=== PATIENT | female | born 1945 | race Hispanic/Latino ===

== ENCOUNTER 2017-12-30 10:28 | Outpatient (CLI) | payer MEDICARE | END 2017-12-30 10:29 | disposition home or self-care (01) | LOC: BICMAMMO 10:28 | PROVIDERS: ATTEND Internal Medicine Hematology & Oncology | DX: Z12.31 Encounter for screening mammogram for malignant neoplasm of breast (principal); Z85.3 Personal history of malignant neoplasm of breast; Z98.82 Breast implant status; Z80.3 Family history of malignant neoplasm of breast | CPT/HCPCS: 77063; 77067 ==

== ENCOUNTER 2018-07-15 10:03 | Outpatient (CLI) | payer MEDICARE ==
--- NOTE | 2018-07-15 10:23 | RAD ---
EXAM: Chest PA and lateral: HISTORY: Cough. Symptoms x1 week. COMPARISON: 07/16/2016 FINDINGS: Heart: Normal cardiac silhouette Aorta: There is sclerosis of the aortic knob Pulmonary vessels: Slightly prominent Costophrenic angles: Costophrenic angles are clear. Lungs: Hyperinflation with chronic changes. Pneumothorax: No pneumothorax Osseous structures: Old posterior right seventh and eighth rib fractures are noted IMPRESSION: No acute cardiopulmonary process. Atherosclerosis of the aorta.
== END 2018-07-15 10:04 | disposition home or self-care (01) ==
LOC: BICRAD 10:03
PROVIDERS: ATTEND Internal Medicine
DX: R05 Cough (principal); I70.0 Atherosclerosis of aorta
CPT/HCPCS: 71046

== ENCOUNTER 2018-08-11 08:19 | Outpatient (CLI) | payer MEDICARE ==
[2018-08-11 08:56] LABS: Estimated GFR-MDRD - POC Greater than 90
--- NOTE | 2018-08-11 12:07 | MRI ---
MRI RIGHT UPPER EXTREMITY WITH AND WITHOUT CONTRAST: HISTORY: Mass. COMPARISON: None. FINDINGS: There appears to be a rupture of the longhead biceps tendon with an empty intertrabecular groove. Th e tendon is retracted from the intertrabecular groove to the myotendinous junction. There is edema w ithin the biceps muscle. This is incompletely evaluated on this exam as the caudal margin is not com pletely visualized. The retracted tendon from the intertrabecular groove is above the elbow joint approximately 13 cm. T he short head of the biceps is unremarkable. There is an intact right breast implant. The deltoid muscle as well as the pectoralis muscle is inta ct. No adenopathy. The enhancement of the muscle and adjacent fascia is likely sequelae of inflammatory change from rece nt rupture. IMPRESSION: Findings suggesting a ruptured longhead biceps tendon from the intertrabecular groove retracted down distally. Orthopedic consultation advised. Adjacent enhancement, likely inflammatory in nature from relatively a recent rupture. Underlying mass is felt less likely. POS: TPC
== END 2018-08-11 08:20 | disposition home or self-care (01) ==
LOC: BICMRI 08:19
PROVIDERS: ATTEND Internal Medicine
DX: R22.31 Localized swelling, mass and lump, right upper limb (principal)
CPT/HCPCS: 82565

== ENCOUNTER 2019-01-04 09:07 | Outpatient (CLI) | payer MEDICARE ==
--- NOTE | 2019-01-04 10:05 | MMO ---
Bilateral MAMMO Bilat Screen [facility]. CLINICAL HISTORY: Patient is 73 years old and is seen for screening. The patient has no family history of breast cancer. The patient has a history of right Implants in 2012 and left Mastectomy - malignant. VIEWS: The views performed were: right craniocaudal; right craniocaudal with tomosynthesis; right mediolateral oblique; right mediolateral oblique with tomosynthesis; and right Implant displaced. FILMS COMPARED: The present examination has been compared to prior imaging studies performed at [facility] on 12/15/2014, 12/26/2015, 12/26/2016 and 12/30/2017. This study has been interpreted with the assistance of computer-aided detection. MAMMOGRAM FINDINGS: There are scattered fibroglandular densities. Finding 1: There are stable benign appearing calcifications with associated biopsy clip seen in the right breast. There are no suspicious masses, calcifications or areas of architectural distortion. Finding 2: Normal implants are present. There are no suspicious masses, suspicious calcifications, or new areas of architectural distortion. IMPRESSION: THERE IS NO MAMMOGRAPHIC EVIDENCE OF MALIGNANCY. A ROUTINE FOLLOW-UP MAMMOGRAM IN 1 YEAR IS RECOMMENDED. THE RESULTS OF THIS EXAM WERE SENT TO THE PATIENT. ACR BI-RADS Category 2 - Benign finding MAMMOGRAPHY NOTE: 1. A negative mammogram report should not delay a biopsy if a dominant of clinically suspicious mass is present. 2. Approximately 10% to 15% of breast cancers are not detected by mammography. 3. Adenosis and dense breasts may obscure an underlying neoplasm. Reported by: FLORECITA PEREA MD Electonically Signed: [id number]
== END 2019-01-04 09:08 | disposition home or self-care (01) ==
LOC: BICMAMMO 09:07
PROVIDERS: ATTEND Internal Medicine Hematology & Oncology
DX: Z12.31 Encounter for screening mammogram for malignant neoplasm of breast (principal); Z98.82 Breast implant status
CPT/HCPCS: 77063; 77067

== ENCOUNTER 2019-08-18 08:37 | Outpatient (CLI) | payer MEDICARE ==
--- NOTE | 2019-08-18 10:50 | BD ---
BONE DENSITOMETRY: INDICATION: Postmenopausal screening. FINDINGS: Lumbar Spine: BMD (g/cm2) L1 0.952 T-Score: -0.3 L2 0.939 T-Score: -0.8 L3 1.023 T-Score: -0.6 L4 1.034 T-Score: -0.2 L1-L4 0.990 T-Score: -0.5 Femoral Neck: 0.624 T-Score: -2.0 Total Femur: 0.894 T-Score: -0.4 Impression: 1. Bone mineral density of the femoral neck indicates osteopenia. 2. Bone mineral density of the lumbar spine within normal range. Ten-year Fracture Risk: Major osteoporotic fracture: 19%. Hip Fracture: 8.6%. POS: AGW
== END 2019-08-18 08:38 | disposition home or self-care (01) ==
LOC: BICMAMMO 08:37
PROVIDERS: ATTEND Internal Medicine
DX: Z13.820 Encounter for screening for osteoporosis (principal); M85.859 Other specified disorders of bone density and structure, unspecified thigh; Z78.0 Asymptomatic menopausal state
CPT/HCPCS: 77080

== ENCOUNTER 2020-01-17 08:19 | Outpatient (CLI) | payer MEDICARE ==
--- NOTE | 2020-01-17 08:53 | MMO ---
Bilateral MAMMO Bilat Screen [facility]. CLINICAL HISTORY: Patient is 74 years old and is seen for screening. The patient has no family history of breast cancer. The patient has a history of right Implants in 2011 and left Mastectomy - malignant. VIEWS: The views performed were: right craniocaudal; right craniocaudal implant displaced; right mediolateral oblique; and right mediolateral oblique implant displaced. FILMS COMPARED: The present examination has been compared to prior imaging studies performed at [facility] on 12/26/2015, 12/26/2016, 12/30/2017 and 01/04/2019. This study has been interpreted with the assistance of computer-aided detection. MAMMOGRAM FINDINGS: There are scattered fibroglandular densities. Finding 1: There are stable benign appearing calcifications seen in both breasts. Finding 2: There is a stable intramammary lymph node seen in the right breast. Finding 3: Normal implants are present. There are no suspicious masses, suspicious calcifications, or new areas of architectural distortion. IMPRESSION: THERE IS NO MAMMOGRAPHIC EVIDENCE OF MALIGNANCY. A ROUTINE FOLLOW-UP MAMMOGRAM IN 1 YEAR IS RECOMMENDED. THE RESULTS OF THIS EXAM WERE SENT TO THE PATIENT. ACR BI-RADS Category 2 - Benign finding MAMMOGRAPHY NOTE: 1. A negative mammogram report should not delay a biopsy if a dominant of clinically suspicious mass is present. 2. Approximately 10% to 15% of breast cancers are not detected by mammography. 3. Adenosis and dense breasts may obscure an underlying neoplasm. Reported by: JERARDO TOMPKINS MD Electonically Signed: [id number]
== END 2020-01-17 08:20 | disposition home or self-care (01) ==
LOC: BICMAMMO 08:19
PROVIDERS: ATTEND Internal Medicine Hematology & Oncology
DX: Z12.31 Encounter for screening mammogram for malignant neoplasm of breast (principal); Z90.12 Acquired absence of left breast and nipple; Z85.3 Personal history of malignant neoplasm of breast; Z98.82 Breast implant status
CPT/HCPCS: 77063; 77067

== ENCOUNTER 2020-09-03 12:16 | Outpatient (CLI) | payer MEDICARE | END 2020-09-03 12:17 | disposition home or self-care (01) | LOC: BICCT 12:16 | PROVIDERS: ATTEND Internal Medicine | DX: Z12.2 Encounter for screening for malignant neoplasm of respiratory organs (principal); F17.210 Nicotine dependence, cigarettes, uncomplicated; N20.0 Calculus of kidney; I25.10 Atherosclerotic heart disease of native coronary artery without angina pectoris; I70.0 Atherosclerosis of aorta | CPT/HCPCS: 71271 ==

== ENCOUNTER 2021-01-18 09:09 | Outpatient (CLI) | payer MEDICARE | END 2021-01-18 09:10 | disposition home or self-care (01) | LOC: BICMAMMO 09:09 | PROVIDERS: ATTEND Internal Medicine | DX: Z12.31 Encounter for screening mammogram for malignant neoplasm of breast (principal); Z98.82 Breast implant status; Z85.3 Personal history of malignant neoplasm of breast; Z98.890 Other specified postprocedural states | CPT/HCPCS: 77063; 77067 ==

== ENCOUNTER 2021-09-02 12:17 | Outpatient (CLI) | payer MEDICARE | END 2021-09-02 12:18 | disposition home or self-care (01) | LOC: BICRAD 12:17 | PROVIDERS: ATTEND Internal Medicine | DX: M25.551 Pain in right hip (principal); M25.561 Pain in right knee; M16.11 Unilateral primary osteoarthritis, right hip; M17.11 Unilateral primary osteoarthritis, right knee ==

== ENCOUNTER 2021-09-10 07:40 | Outpatient (CLI) | payer MEDICARE | END 2021-09-10 07:41 | disposition home or self-care (01) | LOC: BICMAMMO 07:40 | PROVIDERS: ATTEND Internal Medicine | DX: Z13.820 Encounter for screening for osteoporosis (principal); Z12.2 Encounter for screening for malignant neoplasm of respiratory organs; F17.210 Nicotine dependence, cigarettes, uncomplicated; M85.851 Other specified disorders of bone density and structure, right thigh; M85.852 Other specified disorders of bone density and structure, left thigh; Z78.0 Asymptomatic menopausal state | CPT/HCPCS: 71271; 77080 ==

== ENCOUNTER 2022-01-07 16:44 | Inpatient (IN) | payer MEDICARE ==
[~2022-01-07 16:44] MED LIST: Iopamidol-370 76% 500 ML 1 ML ONE
[2022-01-07] MEDS ORDERED: Ondansetron PF 4 MG/2 ML Vial ONE (18:33)
[2022-01-07 19:02] LABS: Hemoglobin 11.9 g/dL (12.0-16.0); Mean Platelet Volume 7.5 fL (7.4-10.4); Platelet Count 280 thou/uL (130-400); RBC Distribution Width 11.2 % (11.5-14.5); Red Blood Cell (RBC) Count 3.71 mill/uL (4.20-5.40); White Blood Cell (WBC) Count 16.4 thou/uL (4.8-10.8)
[2022-01-07 19:15] LABS: Band 18 % (5-11); Lymphocytes 7 % (21-51); MDiff Complete? YES; Monocytes 20 % (0-10); Neutrophil 55 % (42-75); Platelet Morphology Comment Appears Adequate; Polychromasia SLIGHT = 2-3 cells (100X) (0-2/hpf); Vacuoles SLIGHT
[2022-01-07 19:29] LABS: ALT (SGPT) 33 U/L (8-55); AST (SGOT) 57 U/L (5-34); Albumin 3.4 g/dL (3.4-4.8); Alkaline Phosphatase 153 U/L (40-110); Anion Gap 13 mmol/L (10-20); BUN (Urea Nitrogen) 12 mg/dL (9.8-20.1); Bilirubin, Total 0.5 mg/dL (0.2-1.2); Calc. Creatinine Clearance 0 mL/min (70-130); Calcium 8.4 mg/dL (7.8-10.44); Carbon Dioxide 19 mmol/L (23-31); Chloride 102 mmol/L (98-107); Estimated GFR 76; Glucose 120 mg/dL (83-110); Lipase 12 U/L (8-78); Magnesium 1.3 mg/dL (1.6-2.6); Potassium 3.2 mmol/L (3.5-5.1); Protein, Total 6.4 g/dL (5.8-8.1); Sodium 131 mmol/L (136-145)
[2022-01-07 19:42] LABS: Bacteria/HPF 4+ HPF (None Seen); Bilirubin Negative (Negative); Blood, Urine 1+ (Negative); Clarity Turbid (Clear); Glucose, Urine (Dipstick) Normal (Negative); Ketone, Urine Trace mg/dL (Negative); Leukocyte 500 Leu/uL (Negative); Nitrite Negative (Negative); Protein, Urine (Dipstick) 50 mg/dL (Neg-Trace); Specific Gravity, Urine 1.016 (1.002-1.036); Squamous Epithelial 0-3 HPF (0-3); Urobilinogen Normal mg/dL (Less than 2); WBC/HPF Greater than 50 HPF (0-3); pH, Urine 5.5 (5.0-9.0)
[2022-01-07] MEDS ORDERED: Piperacillin/Tazobactam 4.5 GM VIAL ONE (20:04)
[2022-01-07] MEDS ORDERED: Potassium Chloride 20 MEQ/100 ML PREMIX BAG ONE (21:00)
[2022-01-07] MEDS ORDERED: cefTRIAXone\\ROCEPHIN 1 GM VIAL ONE (21:00)
[2022-01-07] MEDS ORDERED: Potassium Chloride 20 MEQ TAB ONE (21:00)
[2022-01-07] MEDS ORDERED: Ondansetron PF 4 MG/2 ML Vial IVP PRN (21:34)
[2022-01-07] MEDS ORDERED: hydrALAZINE 20 MG/ML VIAL SLOW IVP PRN (21:36)
[2022-01-07] MEDS ORDERED: Magnesium 2 GM/50 ML(in water) 2 GM in Premix Bag 1 BAG IVPB SCH (21:45)
[2022-01-07] MEDS ORDERED: Potassium Chloride 20 MEQ in Lactated Ringer's 1,000 ML IV SCH (21:45)
[2022-01-07] MEDS ORDERED: Morphine 4 MG/ML VIAL SLOW IVP PRN (21:48)
[2022-01-07 22:43] VITALS: BMI 20.7
[2022-01-07] MEDS: Potassium Chloride 20 MEQ in Lactated Ringer's 1,000 ML IV SCH (23:11)
[2022-01-07] MEDS: Acetaminophen 325 MG TAB PO PRN (23:11)
[2022-01-08] MEDS ORDERED: Cefepime 2 GM in Sodium Chloride 0.9% 100 ML IVPB SCH (04:00)
[2022-01-08 07:43] LABS: Hemoglobin 11.7 g/dL (12.0-16.0); Mean Corpuscular HGB CONC 33.2 g/dL (32.0-36.0); Mean Corpuscular Hemoglobin 32.7 pg (27.0-31.0); Mean Corpuscular Volume 98.4 fl (78.0-98.0); Mean Platelet Volume 7.7 fL (7.4-10.4); Platelet Count 288 thou/uL (130-400); RBC Distribution Width 11.3 % (11.5-14.5); Red Blood Cell (RBC) Count 3.59 mill/uL (4.20-5.40); White Blood Cell (WBC) Count 15.8 thou/uL (4.8-10.8)
[2022-01-08 07:57] LABS: ALT (SGPT) 38 U/L (8-55); AST (SGOT) 69 U/L (5-34); Albumin 3.1 g/dL (3.4-4.8); Alkaline Phosphatase 148 U/L (40-110); Anion Gap 11 mmol/L (10-20); BUN (Urea Nitrogen) 8 mg/dL (9.8-20.1); Bilirubin, Total 0.4 mg/dL (0.2-1.2); Calc. Creatinine Clearance 62 mL/min (70-130); Calcium 8.2 mg/dL (7.8-10.44); Carbon Dioxide 18 mmol/L (23-31); Chloride 106 mmol/L (98-107); Estimated GFR 91; Globulin 2.9 g/dL (2.4-3.5); Glucose 97 mg/dL (83-110); Magnesium 1.8 mg/dL (1.6-2.6); Potassium 3.6 mmol/L (3.5-5.1); Sodium 131 mmol/L (136-145)
[2022-01-08] MEDS: Anastrozole 1 MG TAB PO SCH (08:22)
[2022-01-08] MEDS: Nicotine 21 MG PATCH TD SCH (08:22)
[2022-01-08] MEDS: Famotidine 20 MG TAB PO SCH ×2 (08:23→20:04)
[2022-01-08] MEDS: Zinc Sulfate 220 MG CAP PO SCH (08:23)
[2022-01-08 08:31] LABS: Band 17 % (5-11); Lymphocytes 8 % (21-51); MDiff Complete? YES; Monocytes 20 % (0-10); Neutrophil 55 % (42-75); Platelet Morphology Comment Appears Adequate; RBC Morphology Normal
[2022-01-08] MEDS ORDERED: Enoxaparin Sodium 30 MG/0.3 ML SYRINGE SC SCH (09:00)
[2022-01-08] MEDS: Loperamide HCl 2 MG CAP PO PRN ×2 (11:14→13:20)
[2022-01-08] MEDS: Acetaminophen 325 MG TAB PO PRN ×2 (12:04→20:24)
[2022-01-08] MEDS: Potassium Chloride 20 MEQ in Lactated Ringer's 1,000 ML IV SCH ×2 (13:19→20:04)
[2022-01-08] MEDS ORDERED: Electrolyte Replacement Protocol 1 EACH FS SCH (14:30)
[2022-01-08] MEDS ORDERED: Electrolyte Replacement Protocol FS PRN (15:45)
[2022-01-08] MEDS ORDERED: Magnesium 2 GM/50 ML(in water) 2 GM in Premix Bag 1 BAG IVPB SCH (15:45)
[2022-01-08] MEDS: Piperacillin/Tazobactam 3.375 GM in Sodium Chloride 0.9% 100 ML IVPB SCH (16:44)
[2022-01-08 21:03] LABS: Campy jejuni + coli by PCR Negative (Negative); STEC Shiga Toxin 1+2 Negative (Negative); Salmonella spp. by PCR Negative (Negative); Shigella spp + EIEC by PCR Negative (Negative)
[2022-01-09] MEDS: Piperacillin/Tazobactam 3.375 GM in Sodium Chloride 0.9% 100 ML IVPB SCH ×4 (00:05→23:47)
[2022-01-09] MEDS ORDERED: Benzonatate 100 MG CAP PO PRN (00:12)
[2022-01-09] MEDS: Potassium Chloride 20 MEQ in Lactated Ringer's 1,000 ML IV SCH ×2 (06:20→16:26)
[2022-01-09 06:48] LABS: Hemoglobin 10.5 g/dL (12.0-16.0); Mean Corpuscular HGB CONC 33.1 g/dL (32.0-36.0); Mean Corpuscular Volume 96.6 fl (78.0-98.0); Mean Platelet Volume 7.6 fL (7.4-10.4); Platelet Count 309 thou/uL (130-400); RBC Distribution Width 11.4 % (11.5-14.5); Red Blood Cell (RBC) Count 3.27 mill/uL (4.20-5.40); White Blood Cell (WBC) Count 11.4 thou/uL (4.8-10.8)
[2022-01-09 06:56] LABS: ALT (SGPT) 48 U/L (8-55); AST (SGOT) 72 U/L (5-34); Albumin 2.9 g/dL (3.4-4.8); Alkaline Phosphatase 144 U/L (40-110); Anion Gap 9 mmol/L (10-20); BUN (Urea Nitrogen) 5 mg/dL (9.8-20.1); Bilirubin, Total 0.6 mg/dL (0.2-1.2); Calc. Creatinine Clearance 71 mL/min (70-130); Calcium 7.8 mg/dL (7.8-10.44); Carbon Dioxide 21 mmol/L (23-31); Chloride 107 mmol/L (98-107); Estimated GFR 94; Globulin 2.2 g/dL (2.4-3.5); Glucose 106 mg/dL (83-110); Phosphorus 1.3 mg/dL (2.3-4.7); Potassium 3.8 mmol/L (3.5-5.1); Protein, Total 5.1 g/dL (5.8-8.1); Sodium 133 mmol/L (136-145)
[2022-01-09 07:55] LABS: Band 10 % (5-11); Eosinophils 1 % (0-10); Lymphocytes 15 % (21-51); MDiff Complete? YES; Monocytes 14 % (0-10); Neutrophil 60 % (42-75); Platelet Morphology Comment Appears Adequate; Polychromasia SLIGHT = 2-3 cells (100X) (0-2/hpf)
[2022-01-09] MEDS ORDERED: Enoxaparin Sodium 40 MG/0.4 ML SYRINGE SC SCH (09:00)
[2022-01-09] MEDS: PHOS-NAK 1 PKT PACK PO SCH ×6 (09:33→20:50)
[2022-01-09] MEDS: Anastrozole 1 MG TAB PO SCH (09:33)
[2022-01-09] MEDS: Famotidine 20 MG TAB PO SCH ×2 (09:33→20:51)
[2022-01-09] MEDS: Nicotine 21 MG PATCH TD SCH (09:34)
[2022-01-09] MEDS: Zinc Sulfate 220 MG CAP PO SCH (09:34)
[2022-01-09] MEDS ORDERED: Lactated Ringer's 1,000 ML IV SCH (16:00)
[2022-01-09] MEDS ORDERED: Piperacillin/Tazobactam 3.375 GM VIAL ONE (16:18)
[2022-01-09] MEDS ORDERED: Sodium Chloride 0.9% 100 ML ONE (16:18)
[2022-01-09] MEDS ORDERED: fentaNYL PF 100 MCG/2 ML SYRINGE ONE (16:27)
[2022-01-09] MEDS ORDERED: Bupivacaine HCl 0.5%/Epinephrine 1:200,000/PF 30 ml Vial ONE ×2 (16:35→16:40)
[2022-01-09] MEDS ORDERED: ePHEDrine 50 MG/ML VIAL ONE (16:53)
[2022-01-09] MEDS ORDERED: Dexamethasone 20 MG/5 ML VIAL ONE (16:53)
[2022-01-09] MEDS ORDERED: PROPOFOL 200 MG/20 ML VIAL ONE (16:53)
[2022-01-09] MEDS ORDERED: Ondansetron PF 4 MG/2 ML Vial ONE (16:53)
[2022-01-09] MEDS ORDERED: Metoclopramide HCl 10 MG/2 ML VIAL ONE (16:53)
[2022-01-09] MEDS ORDERED: Glycopyrrolate 0.2 MG/ML 5 ML SYRINGE ONE (16:53)
[2022-01-09] MEDS ORDERED: Rocuronium Bromide 10 MG/ML (10ML VIAL) ONE (16:53)
[2022-01-09] MEDS ORDERED: Succinylcholine Chloride 200 MG/10 ML VIAL ONE (16:53)
[2022-01-09] MEDS ORDERED: NEOSTIGMINE 3 MG/3 ML SYR 3 MG/3 ML SYRINGE ONE (16:53)
[2022-01-09] MEDS ORDERED: PHENYLEPHRINE-NS 100 MCG/ML 10 ML SYRINGE ONE (16:53)
[2022-01-09] MEDS ORDERED: traMADol HCl 50 MG TAB PO PRN (17:09)
[2022-01-09] MEDS ORDERED: Ibuprofen 600 MG TAB PO PRN (17:09)
[2022-01-09] MEDS ORDERED: Ketorolac Tromethamine 30 MG/ML VIAL IVP SCH (17:15)
[2022-01-09] MEDS ORDERED: Acetaminophen 500 MG TAB PO SCH (17:15)
[2022-01-09] MEDS ORDERED: Promethazine HCl 25 MG/ML VIAL IVPB PRN (17:51)
[2022-01-09] MEDS ORDERED: Meperidine HCl/PF 25 MG/ML VIAL SLOW IVP PRN (17:51)
[2022-01-09] MEDS ORDERED: Ketorolac Tromethamine 30 MG/ML VIAL IVP PRN (17:51)
[2022-01-09] MEDS ORDERED: Ondansetron HCl/PF 4 MG/2 ML Vial IVP PRN (17:51)
[2022-01-09] MEDS ORDERED: Promethazine HCl 25 MG/ML VIAL IM PRN (17:51)
[2022-01-09] MEDS ORDERED: Morphine 4 MG/ML VIAL SLOW IVP PRN (17:58)
[2022-01-09] MEDS ORDERED: Ketorolac Tromethamine 30 MG/ML VIAL ONE (18:21)
[2022-01-09] MEDS ORDERED: Acetaminophen 500 MG TAB PO PRN (21:00)
[2022-01-10] MEDS ORDERED: Enoxaparin Sodium 40 MG/0.4 ML SYRINGE SC SCH (07:30)
[2022-01-10 07:57] VITALS: BP 135/60; TEMP 97.8
[2022-01-10 07:59] LABS: #Lymphocytes 0.8 thou/uL (1.20-3.40); #Monocytes 0.7 thou/uL (0.11-0.59); #Neutrophils 13.3 thou/uL (1.40-6.50); %Eosinophils 0.1 % (0.0-10.0); %Lymphocytes 5.6 % (21.0-51.0); %Monocytes 4.5 % (0.0-10.0); %Neutrophils 89.8 % (42.0-75.0); Hemoglobin 11.1 g/dL (12.0-16.0); Mean Corpuscular HGB CONC 33.9 g/dL (32.0-36.0); Mean Corpuscular Hemoglobin 32.7 pg (27.0-31.0); Mean Corpuscular Volume 96.4 fl (78.0-98.0); Mean Platelet Volume 7.6 fL (7.4-10.4); Platelet Count 411 thou/uL (130-400); RBC Distribution Width 11.1 % (11.5-14.5); Red Blood Cell (RBC) Count 3.39 mill/uL (4.20-5.40); White Blood Cell (WBC) Count 14.9 thou/uL (4.8-10.8)
[2022-01-10] MEDS: Anastrozole 1 MG TAB PO SCH (08:15)
[2022-01-10] MEDS: Zinc Sulfate 220 MG CAP PO SCH (08:15)
[2022-01-10] MEDS: Piperacillin/Tazobactam 3.375 GM in Sodium Chloride 0.9% 100 ML IVPB SCH (08:16)
[2022-01-10] MEDS: Famotidine 20 MG TAB PO SCH (08:16)
[2022-01-10] MEDS: Nicotine 21 MG PATCH TD SCH (08:16)
[2022-01-10 08:21] LABS: ALT (SGPT) 77 U/L (8-55); AST (SGOT) 103 U/L (5-34); Albumin 3.2 g/dL (3.4-4.8); Alkaline Phosphatase 159 U/L (40-110); Anion Gap 13 mmol/L (10-20); BUN (Urea Nitrogen) 5 mg/dL (9.8-20.1); Bilirubin, Total 0.7 mg/dL (0.2-1.2); Calc. Creatinine Clearance 71 mL/min (70-130); Calcium 8.5 mg/dL (7.8-10.44); Carbon Dioxide 22 mmol/L (23-31); Chloride 107 mmol/L (98-107); Estimated GFR 94; Globulin 3.2 g/dL (2.4-3.5); Glucose 168 mg/dL (83-110); Potassium 3.8 mmol/L (3.5-5.1); Protein, Total 6.4 g/dL (5.8-8.1); Sodium 138 mmol/L (136-145)
[2022-01-10] MEDS ORDERED: Polyethylene Glycol 3350 17 GM Packet PO SCH (09:00)
[2022-01-11] MEDS ORDERED: Enoxaparin Sodium 40 MG/0.4 ML SYRINGE SC SCH (09:00)
== END 2022-01-10 11:22 | disposition home or self-care (01) | DRG 854 ==
LOC: ERS 16:44 → T4-A 21:06
PROVIDERS: ADMIT Internal Medicine; ATTEND Family Medicine
PROC: 0FT44ZZ Resection of Gallbladder, Percutaneous Endoscopic Approach (ICD-10-PCS; principal; 2022-01-09)
DX: A41.51 Sepsis due to Escherichia coli [E. coli] (principal); E87.1 Hypo-osmolality and hyponatremia; K80.00 Calculus of gallbladder with acute cholecystitis without obstruction; N10 Acute pyelonephritis; Z16.20 Resistance to unspecified antibiotic; E86.0 Dehydration; E87.6 Hypokalemia; I10 Essential (primary) hypertension; E78.5 Hyperlipidemia, unspecified; C50.919 Malignant neoplasm of unspecified site of unspecified female breast; F17.210 Nicotine dependence, cigarettes, uncomplicated; E83.42 Hypomagnesemia; N20.0 Calculus of kidney; Z20.822 Contact with and (suspected) exposure to COVID-19; Z79.899 Other long term (current) drug therapy; Z98.890 Other specified postprocedural states; Z90.710 Acquired absence of both cervix and uterus
CPT/HCPCS: 36415; 74177; 76705; 80053; 81001; 81015; 83605; 83630; 83690; 83735; 84100; 85025; 87077; 87086; 87186; 87324; 87449; 87505; 87804; 88304; 93005; 93010; 96374; 96375; C1889; J0330; J0692; J0696; J1100; J1650; J1885; J2405; J2543; J2704; J2765; J3475; J3480; J3490; J7120; Q9967; U0003; U0005

== ENCOUNTER 2022-04-01 09:33 | Outpatient (CLI) | payer MEDICARE | END 2022-04-01 09:34 | disposition home or self-care (01) | LOC: BICMAMMO 09:33 | PROVIDERS: ATTEND Internal Medicine | DX: Z12.31 Encounter for screening mammogram for malignant neoplasm of breast (principal); R92.1 Mammographic calcification found on diagnostic imaging of breast; Z90.12 Acquired absence of left breast and nipple; Z98.82 Breast implant status; Z98.890 Other specified postprocedural states | CPT/HCPCS: 77063; 77067 ==

== ENCOUNTER 2022-11-19 14:11 | Outpatient (CLI) | payer MEDICARE | END 2022-11-19 14:12 | disposition home or self-care (01) | LOC: ULT 14:11 | PROVIDERS: ATTEND Orthopaedic Surgery | DX: M79.662 Pain in left lower leg (principal) ==

== ENCOUNTER 2023-04-08 12:33 | Outpatient (CLI) | payer MEDICARE | END 2023-04-08 12:34 | disposition home or self-care (01) | LOC: BICMAMMO 12:33 | PROVIDERS: ATTEND Internal Medicine | DX: Z12.31 Encounter for screening mammogram for malignant neoplasm of breast (principal); Z85.3 Personal history of malignant neoplasm of breast; Z98.82 Breast implant status; Z90.12 Acquired absence of left breast and nipple | CPT/HCPCS: 77063; 77067 ==

== ENCOUNTER 2024-01-01 13:17 | Outpatient (CLI) | payer MEDICARE | END 2024-01-01 13:18 | disposition home or self-care (01) | LOC: BICRAD 13:17 | PROVIDERS: ATTEND Internal Medicine | DX: M89.311 Hypertrophy of bone, right shoulder (principal); M19.011 Primary osteoarthritis, right shoulder; M25.711 Osteophyte, right shoulder; M75.31 Calcific tendinitis of right shoulder ==

== ENCOUNTER 2024-03-18 12:26 | Outpatient (CLI) | payer MEDICARE, OTHER, SELFPAY | END 2024-03-18 12:27 | disposition home or self-care (01) | LOC: CT 12:26 | PROVIDERS: ATTEND Orthopaedic Surgery | DX: M17.11 Unilateral primary osteoarthritis, right knee (principal) ==

== ENCOUNTER 2024-04-12 05:28 | Observation (INO) | payer MEDICARE ==
[2024-03-22 13:20] VITALS: BMI 19.8
[2024-04-12] MEDS ORDERED: Tranexamic Acid 1,000 MG/10 ML VIAL ONE (06:05)
[2024-04-12] MEDS ORDERED: Sodium Chloride 0.9% 100 ML ONE (06:06)
[2024-04-12] MEDS ORDERED: Vancomycin 1 GM/200 ML (FROZEN) BAG ONE (06:06)
[2024-04-12] MEDS ORDERED: Dexamethasone 20 MG/5 ML VIAL ONE (06:33)
[2024-04-12] MEDS ORDERED: Lidocaine 1% PF 5 ML VIAL ONE (06:33)
[2024-04-12] MEDS ORDERED: fentaNYL PF 100 MCG/2 ML SYRINGE ONE ×2 (06:33→07:52)
[2024-04-12] MEDS ORDERED: Ondansetron PF 4 MG/2 ML Vial ONE (06:33)
[2024-04-12] MEDS ORDERED: PROPOFOL 20 ML ONE ×2 (06:33→07:52)
[2024-04-12] MEDS ORDERED: Ropivacaine 0.5% HCl/PF (150 MG/30 ML VIAL) ONE (06:54)
[2024-04-12] MEDS ORDERED: Dexmedetomidine 200 MCG/2 ML VIAL ONE (06:54)
[2024-04-12] MEDS ORDERED: CEFAZOLIN 2 GM VIAL ONE (06:55)
[2024-04-12] MEDS ORDERED: fentaNYL 50 mcg/mL 1 mL Vial SLOW IVP PRN (07:30)
[2024-04-12] MEDS ORDERED: Promethazine HCl 25 MG/ML VIAL IM PRN ×3 (07:30→09:04)
[2024-04-12] MEDS ORDERED: traMADol HCl 50 MG TAB PO PRN ×2 (07:30)
[2024-04-12] MEDS ORDERED: Ropivacaine 0.2% 550 ML 550 ML NERVE BLCK SCH (07:30)
[2024-04-12] MEDS ORDERED: HYDROcodone/Acetaminophen 10/325 mg Tablet PO PRN ×2 (07:30)
[2024-04-12] MEDS ORDERED: Ondansetron PF 4 MG/2 ML Vial IVP PRN ×2 (07:30→09:04)
[2024-04-12] MEDS ORDERED: ePHEDrine Sulfate 50 MG/10 ML VIAL ONE (07:33)
[2024-04-12] MEDS ORDERED: PHENYLEPHRINE-NS 100 MCG/ML 10 ML SYRINGE ONE (07:34)
[2024-04-12] MEDS ORDERED: Bupivacaine 0.25% HCL 30 ML VIAL ONE (07:44)
[2024-04-12] MEDS ORDERED: EPINEPHrine 1 MG/ML VIAL ONE (07:44)
[2024-04-12] MEDS ORDERED: Ondansetron HCl/PF 4 MG/2 ML Vial IVP PRN (08:56)
[2024-04-12] MEDS ORDERED: HYDROmorphone 2 MG/ML VIAL SLOW IVP PRN (08:56)
[2024-04-12] MEDS ORDERED: diphenhydrAMINE 25 MG CAP PO PRN (09:04)
[2024-04-12] MEDS ORDERED: Acetaminophen 325 MG TAB PO PRN (09:04)
[2024-04-12] MEDS ORDERED: fentaNYL 50 mcg/mL 1 mL Vial ONE ×2 (09:27→10:25)
[2024-04-12] MEDS: Senokot S 8.6-50 MG TAB PO SCH (13:11)
[2024-04-12] MEDS: Multivitamin W/ Minerals 1 TAB PO SCH (13:11)
[2024-04-12] MEDS: Aspirin 81 mg Enteric Coated Tablet PO SCH (13:11)
[2024-04-12] MEDS: Sodium Chloride 0.9% 1,000 ML IV SCH (13:11)
[2024-04-12] MEDS: Ferrous Gluconate 324 MG TAB PO SCH (13:11)
[2024-04-12] MEDS: Ketorolac Tromethamine 30 MG (1 mL) VIAL IVP SCH (13:25)
[2024-04-12] MEDS: CEFAZOLIN 2 GM in Sodium Chloride 0.9% 100 ML IVPB SCH (13:29)
[2024-04-12] MEDS: Atorvastatin Calcium 10 MG TAB PO SCH (21:15)
[2024-04-12] MEDS: Calcium Carbonate 600 MG + Vit D TAB PO SCH (21:16)
[2024-04-12] MEDS: Zolpidem Tartrate 5 MG TAB PO PRN (23:33)
[2024-04-13 05:03] LABS: Hematocrit 31.5 % (36.0-47.0); Hemoglobin 10.8 g/dL (12.0-16.0); Mean Corpuscular HGB CONC 34.3 g/dL (32.0-36.0); Mean Corpuscular Hemoglobin 31.4 pg (27.0-31.0); Mean Corpuscular Volume 91.6 fL (78.0-98.0); Mean Platelet Volume 9.9 fL (7.4-10.4); Platelet Count 250 10x3/uL (130-400); RBC Distribution Width 12.2 % (11.5-14.5); Red Blood Cell (RBC) Count 3.44 mill/uL (4.20-5.40)
[2024-04-13 07:58] VITALS: TEMP 98.4
[2024-04-13] MEDS: Cholecalciferol 1,000 UNITS (25 MCG) TAB PO SCH (09:59)
[2024-04-13] MEDS: Amlodipine 10 MG TAB PO SCH (09:59)
[2024-04-13 11:54] VITALS: BP 137/60
== END 2024-04-13 13:33 | disposition home health service (06) ==
LOC: SDC 05:28 → SURG A 12:41 → SDC 13:03 → SURG A 13:03
PROVIDERS: ADMIT Orthopaedic Surgery; ATTEND Orthopaedic Surgery
PROC: 0SRC0JZ Replacement of Right Knee Joint with Synthetic Substitute, Open Approach (ICD-10-PCS; principal; 2024-04-12)
PROC: 3E0T3BZ Introduction of Anesthetic Agent into Peripheral Nerves and Plexi, Percutaneous Approach (ICD-10-PCS; 2024-04-12)
DX: M17.11 Unilateral primary osteoarthritis, right knee (principal); E78.5 Hyperlipidemia, unspecified; Z88.8 Allergy status to other drugs, medicaments and biological substances
CPT/HCPCS: 0055T; 27447; 64448; 36415; 85027; A4306; C1713; C1776; C1889; J0171; J0665; J1100; J1885; J2405; J2704; J2795; J3010; J3370